=== PATIENT | male | born 1980 | race Caucasian/White ===

== ENCOUNTER 2017-08-05 09:26 | Emergency (ER) | payer OTHER ==
[2017-08-05] MEDS ORDERED: KETOROLAC TROMETHAMINE 30 MG/ML SOL IM ONE (09:50)
[2017-08-05] MEDS ORDERED: KETOROLAC TROMETHAMINE 30 MG/ML SOL ONE (09:51)
[2017-08-05 10:00] VITALS: BP 152/81; PULSE 91; RESP 20; TEMP 96.3; O2SAT 98
== END 2017-08-05 10:21 | disposition home or self-care (01) | DRG 552 ==
LOC: ED 09:26
DX: M54.5 Low back pain (principal)
CPT/HCPCS: 96372; 99282; 99283; J1885